=== PATIENT | female | born 2000 | race Caucasian/White ===

== ENCOUNTER 2021-09-27 07:19 | Inpatient (IN) ==
[~2021-09-27 07:19] MED LIST: *HR* Nalbuphine 10 MG/ML AMPUL IV PRN; Azithromycin 500 MG in 0.9 % Sodium Chloride 250 ML IVPB PRN; Famotidine 20 MG/2 ML VIAL IVP PRN; Lidocaine 1% 20 ML MDV INFILT PRN; Metoclopramide 10 MG/2 ML VIAL IVP PRN; Naloxone 0.4 MG/ML INJ IVP PRN
[2021-09-27] MEDS ORDERED: Ringers Solution, Lactated 1,000 ML IVC SCH (07:30)
[2021-09-27 10:03] LABS: Basophils % 0.3 %; Eosinophils # 0.1 K/mcL (0.0-0.6); Eosinophils % 0.9 %; Hematocrit 36.4 % (35.3-44.9); Hemoglobin 11.9 g/dL (11.5-15.4); Immature Granulocytes % 1.5 % (0-4); Lymphocytes # 2.2 K/mcL (0.6-4.6); Lymphocytes % 17.6 %; Mean Corpuscular HGB Conc 32.7 g/dL (31.6-35.5); Mean Corpuscular Hemoglobin 29.6 pg (28.0-33.3); Mean Corpuscular Volume 90.5 fL (83.0-100.0); Mean Platelet Volume 11.9 fL (9.4-12.4); Monocytes # 0.5 K/mcL (0.0-1.3); Monocytes % 3.8 %; Neutrophils # 9.3 K/mcL (1.6-8.9); Platelet Count 158 K/mcL (140-400); Red Blood Count 4.02 M/mcL (3.82-4.97); Red Cell Distribution Width 13.2 % (11.5-14.5); Segmented Neutrophils % 75.9 %; White Blood Count 12.3 K/mcL (4.3-11.1)
[2021-09-27] MEDS: Ondansetron 4 MG/2 ML VIAL IVP PRN (10:29)
[2021-09-27 10:48] LABS: Influenza A PCR Negative (Negative); Influenza B PCR Negative (Negative); Resp. Syncytial Virus PCR Negative (Negative)
[2021-09-27 10:49] LABS: SARS-CoV-2 by PCR (In House) Negative (Negative)
[2021-09-27] MEDS ORDERED: Oxytocin 30 UNIT/503 ML BAG IVC SCH (11:15)
[2021-09-27 13:11] LABS: Amphetamine Screen,Urine Negative ng/mL (Cutoff=1000); Barbiturate Screen,Urine Negative ng/mL (Cutoff=200); Benzodiazepines Screen,Urine Negative ng/mL (Cutoff=200); Cannabinoid Screen,Urine Negative ng/mL (Cutoff = 50); Cocaine Screen,Urine Negative ng/mL (Cutoff= 300); Opiate Screen,Urine Negative ng/mL (Cutoff=300); Phencyclidine Screen,Urine Negative ng/mL (Cutoff=25)
[2021-09-27] MEDS ORDERED: EPHEDrine 50 MG/ML VIAL IVP PRN (17:38)
[2021-09-27] MEDS: Epidural Premix (fent/bupiv) 110 ML EP SCH (18:09)
[2021-09-28] MEDS: Epidural Premix (fent/bupiv) 110 ML EP SCH (01:08)
[2021-09-28] MEDS: Ondansetron 4 MG/2 ML VIAL IVP PRN (04:37)
[2021-09-28] MEDS ORDERED: Ibuprofen 600 MG TABLET PO ONE (09:28)
[2021-09-28] MEDS ORDERED: *HR* OxyCODONE Immed Rel 5 MG TABLET PO PRN ×2 (10:48→10:50)
[2021-09-28] MEDS ORDERED: Rho Immune Globulin 1,500 UNIT SYRINGE IM PRN (10:50)
[2021-09-28] MEDS ORDERED: Benzocaine/Menthol 56 GM AEROSOL SPRAY TP PRN (10:50)
[2021-09-28] MEDS ORDERED: Lanolin 7 G OINT...G. TP PRN (10:50)
[2021-09-28] MEDS ORDERED: Oxytocin 30 UNIT/503 ML BAG IVC SCH (10:50)
[2021-09-28] MEDS ORDERED: Ondansetron ODT 4 MG TAB.RAPDIS SL PRN (10:50)
[2021-09-28] MEDS ORDERED: OXYTOCIN/RINGERS LACTATE 10 UNIT/166.6 ML BAG IVC ONE (10:50)
[2021-09-28] MEDS: Acetaminophen 325 MG TABLET PO SCH ×2 (11:23→20:03)
[2021-09-28] MEDS ORDERED: Methylergonovine 0.2 MG/ML AMPUL IM ONE (14:29)
[2021-09-28] MEDS: Ibuprofen 600 MG TABLET PO SCH (20:04)
[2021-09-29] MEDS: Acetaminophen 325 MG TABLET PO SCH (03:29)
[2021-09-29] MEDS: Ibuprofen 600 MG TABLET PO SCH (03:29)
[2021-09-29 04:18] LABS: Hematocrit 25.5 % (35.3-44.9); Immature Granulocytes % 1.4 % (0-4); Lymphocytes % 9.1 %; Mean Corpuscular HGB Conc 32.9 g/dL (31.6-35.5); Mean Corpuscular Hemoglobin 29.7 pg (28.0-33.3); Mean Corpuscular Volume 90.1 fL (83.0-100.0); Mean Platelet Volume 11.9 fL (9.4-12.4); Platelet Count 143 K/mcL (140-400); Red Blood Count 2.83 M/mcL (3.82-4.97); Red Cell Distribution Width 13.3 % (11.5-14.5); Segmented Neutrophils % 84.4 %
[2021-09-29 04:19] LABS: Basophils # 0.1 K/mcL (0.0-0.2); Basophils % 0.2 %; Eosinophils # 0.1 K/mcL (0.0-0.6); Eosinophils % 0.3 %; Hemoglobin 8.4 g/dL (11.5-15.4); Lymphocytes # 2.2 K/mcL (0.6-4.6); Monocytes # 1.1 K/mcL (0.0-1.3); Monocytes % 4.6 %; Neutrophils # 20.8 K/mcL (1.6-8.9); White Blood Count 24.6 K/mcL (4.3-11.1)
[2021-09-29 04:46] VITALS: O2SAT 98
[2021-09-29 06:47] VITALS: BP 112/71; PULSE 100; TEMP 98
[2021-09-29] MEDS ORDERED: Prenatal Vit/FA 1 EACH TABLET PO SCH (09:00)
== END 2021-09-29 14:30 | disposition home or self-care (01) | DRG 768 ==
LOC: 1NENULAB → 1NENUOBS 09-28 11:15
PROVIDERS: ADMIT Registered Nurse; ATTEND Registered Nurse